=== PATIENT | male | born 1950 | race Hispanic/Latino ===

== ENCOUNTER 2025-01-25 15:52 | Observation (INO) | payer OTHER ==
[~2025-01-25] VITALS: Ht 177.8 cm; Wt 86.6 kg
--- NOTE | 2025-01-25 16:23 | EKG ---
[facility] Test Date: 2025-01-25 Test Time: 16:07:58 Pat Name: ABIEL MARTINEZ Department: EDH Room: ED Gender: M In Service Coordinator: [id number] : 1950 Requested By: REECE ELAM Order Number: [id number] Reading MD: Natali Landry Measurements Intervals [place] Rate: 81 P: 10 VA: 166 QRS: 22 QRSD: 118 T: 50 QT: 415 QTc: 482 Interpretive Statements Sinus rhythm Nonspecific intraventricular conduction delay Inferior infarct, old No previous ECG available for comparison Electronically Signed On 01-26-2025 12:29:07 PIE CRUST MIXER by Natali Landry Please click the below link to view image of tracing.
[2025-01-25 16:49] LABS: IMMATURE GRANULOCYTE ABSOLUTE 0.06 K/uL (0-1); NUCLEATED RED BLOOD CELLS 0.0 % (0.0-0.19); PLATELET COUNT (AUTO) 257 K/uL (130-400); RED BLOOD CELL COUNT(AUTO) 5.49 MIL/uL (4.50-6.20); RED CELL DISTRIBUTION WIDTH 13.0 % (11.0-15.5); WHITE BLOOD COUNT (AUTO) 10.1 K/uL (4.8-10.8)
--- NOTE | 2025-01-25 16:57 | HMCIMG ---
EXAM: CR Chest, 1 View. CLINICAL HISTORY: cp COMPARISON: None provided. FINDINGS: LUNGS: Mild bibasilar airspace disease may reflect an infectious and/or inflammatory process. PLEURAL SPACES: No evidence of pleural effusion or pneumothorax. MEDIASTINUM: Cardiac size and mediastinal contours within normal limits. BONES: No aggressive appearing osseous lesion seen. IMPRESSION: 1. Mild bibasilar airspace disease, possibly representing infection or inflammation. /[place]
[2025-01-25 16:58] LABS: CREATININE 0.9 mg/dL (0.5-1.3); GLOMERULAR FILTR. RATE CALC 89.0 mL/min (>90); GLUCOSE,RANDOM 116.0 mg/dL (70-105); SODIUM SERUM 137.0 mmol/L (136-145); UREA NITROGEN, BLOOD 18.0 mg/dL (7-18)
[2025-01-25 16:59] LABS: INR 1.02 (0.85-1.15)
[2025-01-25 17:03] LABS: CREATINE KINASE, TOTAL 68.0 U/L (21-232)
--- NOTE | 2025-01-25 18:11 | ERN ---
General Chief Complaint: Dizzy/Light Headed Stated Complaint: DIZZINESS Time Seen by MD: 15:58 Source: patient, family History of Present Illness Initial Comments PATIENT IS A 74-YEAR-OLD MALE COMING IN COMPLAINING OF DIZZINESS. PER PATIENT THIS DIZZINESS BEGAN YESTERDAY. HE STATES THAT WHEN HE TRIES TO MOVE HIS HEAD EVERYTHING SPINS. Allergies: Coded Allergies: No Known Drug Allergies (Unverified Allergy, Unknown, 01/25/25) Past Medical History Past Medical History: High Cholesterol, Heart Disease, Hypertension, Stroke Past Surgical History: None ROS Dictation CONSTITUTIONAL: NO CHILLS, NO FEVER, NO WEAKNESS, NO DIAPHORESIS, NO MALAISE. HEAD/FACE: NO SIGNS OF TRAUMA. EENT: NO EYE PAIN, NO BLURRED VISION, NO TEARING, NO DOUBLE VISION, NO EAR PAIN, NO EAR DISCHARGE, NO NOSE PAIN, NO NASAL CONGESTION, NO THROAT PAIN, NO THROAT SWELLING, NO MOUTH PAIN. RESPIRATORY: NO COUGH, NO ORTHOPNEA, NO SOB, NO STRIDOR, NO WHEEZING. CARDIOVASCULAR: NO CHEST PAIN, NO EDEMA, NO PALPITATIONS, NO SYNCOPE. GASTROINTESTINAL/ABDOMINAL: NO ABDOMINAL PAIN, NO CONSTIPATION, NO DIARRHEA, NO NAUSEA, NO VOMITING. GENITOURINARY: NO ABNORMAL DISCHARGE, NO DYSURIA, NO FREQUENT URINATION, NO HEMATURIA. NO COMPLAINTS OF PAIN IN THE GENITALS. MUSCULOSKELETAL: NO BACK PAIN, NO GOUT, NO JOINT PAIN, NO JOINT SWELLING, NO MUSCLE PAIN, NO MUSCLE STIFFNESS, NO NECK PAIN. INTEGUMENTARY: NO CHANGE IN COLOR, NO CHANGE IN HAIR/NAILS, NO DRYNESS, NO LESION, NO LUMPS, NO RASH. NEUROLOGICAL/PSYCH: NO ANXIETY, NOT DEPRESSED, NO EMOTIONAL PROBLEM, NO HEA DACHE, NO NUMBNESS, NO PRE-EXISTING DEFICIT, NO HISTORY OF SEIZURES, NO TREMORS, NO WEAKNESS. HEMATOLOGIC/LYMPHATIC: NOT ANEMIC, NO HISTORY OF BLOOD CLOTS, NO APPARENT BLEEDING, NO BRUISING, GLANDS NOT SWOLLEN. ALL SYSTEMS NEGATIVE, EXCEPT NOTED. Physical Exam Physical Exam Dictation VITAL SIGNS: REVIEWED. GENERAL APPEARANCE: ALERT, ORIENTED X3, NO ACUTE DISTRESS, OBESE. HEAD AND FACE: NON-TRAUMATIC. EYES: PERRL, PINK CONJUNCTIVAS, EYELID NO TRAUMA, ANTERIOR CHAMBER CLEAR. EARS: PINNAS INTACT AND NO SIGNS OF TRAUMA OR ERYTHEMA. EAR CANALS CLEAR AND NO DISCHARGE. TMS ERYTHEMA. NOSE: NO DISCHARGE, NO BLEEDING. OROPHARYNX: MOUTH NORMAL, TEETH NO CARIES, TONGUE PINK. PHARYNX ERYTHEMA. TONSILS NO EXUDATES, NO ABSCESSES NOTED. MUCOUS MEMBRANE MOIST. NECK: SUPPLE, NON-TENDER, NO THYROMEGALY, NO MASSES, NO JVD, NO BRUITS. BREAST: DEFERRED. CHEST: NO TENDERNESS, NO CREPITUS, NO PARADOXICAL MOVEMENT, NO RETRACTIONS. LUNGS: CLEAR, WELL-VENTILATED, SYMMETRIC, NO RALES, NO WHEEZING, NO RHONCHI, NO STRIDOR, GOOD BREATH SOUNDS BILATERALLY. HEART: REGULAR RATE, REGULAR RHYTHM, NO MURMUR, NO GALLOPS. VASCULAR: NO PERIPHERAL EDEMA. ABDOMEN: SOFT, POSITIVE BOWEL SOUNDS, NONDISTENDED, NO GUARDING, NONTENDER, NO REBOUND, NO MASSES NO HEPATOMEGALY, NO SPLENOMEGALY, NO SEPULVEDA'S SIGN, NO HERNIAS. RECTAL: DEFERRED. GENITAL: DEFERRED. NEUROLOGICAL: NORMAL SPEECH, GROSS MOTOR FUNCTION INTACT, GROSS SENSORY FUNCTION INTACT. MUSCULOSKELETAL: NECK NONTENDER, FULL RANGE OF MOTION, BACK NONTENDER, FULL RANGE OF MOTION. EXTREMITIES: NONTENDER, FULL RANGE OF MOTION. SKIN: COLOR PINK, DRY, NO TURGOR, NO RASH, NO LACERATIONS, NO ABRASIONS, NO CONTUSIONS. LYMPHATICS: DEFERRED. Results Laboratory and Microbiology Lab and Micro Result Laboratory Tests Test 01/25/25 16:36 01/25/25 18:10 White Blood Count 10.1 K/uL (4.8-10.8) Red Blood Count 5.49 MIL/uL (4.50-6.20) Hemoglobin 16.5 g/dL (14.0-18.0) Hematocrit 50.3 % (42-54) Mean Corpuscular Volume 91.6 fL (79-99) Mean Corpuscular Hemoglobin 30.1 pg (27.0-33.0) Mean Corpuscular Hemoglobin Concent 32.8 g/dL (32.0-36.0) Red Cell Distribution Width 13.0 % (11.0-15.5) Platelet Count 257 K/uL (130-400) Mean Platelet Volume 9.4 fL (7.5-10.5) Immature Granulocyte % (Auto) 0.6 % (0-1) Neutrophils (%) (Auto) 74.0 % (40.0-77.0) Lymphocytes (%) (Auto) 17.5 % (21.0-51.0) L Monocytes (%) (Auto) 6.7 % (3.0-13.0) Eosinophils (%) (Auto) 0.7 % (0.0-8.0) Basophils (%) (Auto) 0.5 % (0.0-5.0) Neutrophils # (Auto) 7.4 K/uL (1.8-7.7) Lymphocytes # (Auto) 1.8 K/uL (1.0-4.8) Monocytes # (Auto) 0.7 K/uL (0.1-1.0) Eosinophils # (Auto) 0.07 K/uL (0.00-0.70) Basophils # (Auto) 0.05 K/uL (0.00-0.20) Absolute Immature Granulocyte (auto 0.06 K/uL (0-1) Nucleated Red Blood Cells 0.0 % (0.0-0.19) Prothrombin Time 10.8 SEC (9.6-11.6) Prothromb Time International Ratio 1.02 (0.85-1.15) Activated Partial Thromboplast Time 26.3 SEC (26.3-35.5) Sodium Level 137 mmol/L (136-145) Potassium Level 4.5 mmol/L (3.5-5.1) Chloride Level 103 mmol/L (101-111) Carbon Dioxide Level 29 mmol/L (21-32) Blood Urea Nitrogen 18 mg/dL (7-18) Creatinine 0.9 mg/dL (0.5-1.3) Glomerular Filtration Rate Calc 89 mL/min (>90) Random Glucose 116 mg/dL (70-105) H Total Calcium 8.8 mg/dL (8.5-10.1) Magnesium Level 2.00 mg/dL (1.80-2.40) Total Creatine Kinase 68 U/L (21-232) Troponin I High Sensitivity 8 ng/L (4-75) Influenza Type A Antigen Negative For Type A Influenza Type B Antigen Negative For Type B SARS-CoV-2, RNA, NAAT NEGATIVE SARS CoV-2 Group A Streptococcus Rapid negative (NEGATIVE) Labs Reviewed?: Yes MDM MDM: DIFFERENTIAL DIAGNOSIS: RATIONALE: TESTS CONSIDERED AND ORDERED SECONDARY TO SHARED DECISION MAKING INCLUDE: PREVIOUS OUTSIDE RECORDS REVIEWED: OLD ER VISITS. RISK OF COMPLICATION AND/OR MORBIDITY OR MORTALITY OF PATIENT MANAGEMENT: NONE MEDICATIONS-PER MEDICATION RECONCILIATION NEED FOR HOSPITALIZATION: PATIENT DOES NOT MEET CRITERIA FOR HOSPITALIZATION. NEED FOR EMERGENCY MAJOR/MINOR SURGERY: NO THERE ARE NO SOCIAL CONCERNS WITH THIS PATIENT. PRESCRIPTION DRUG MANAGEMENT PRESCRIPTIONS WILL INCLUDE SYMPTOMATIC CARE PATIENT'S PRIOR EXTERNAL MEDICAL RECORDS FROM OTHER ER VISITS WERE REVIEWED BY ME INDICATED. PRIOR TESTING AND RESULTS FROM PREVIOUS VISITS WERE REVIEWED. PRIOR TESTS WERE TAKEN INTO ACCOUNT WITH MEDICAL DECISION MAKING AND RESOURCE UTILIZATION, INDEPENDENT HISTORIAN/HISTORIANS WERE USED TO OBTAIN COMPLETE MEDICAL HISTORY. I INDEPENDENTLY INTERPRETED THE TEST THAT WERE PERFORMED, RESULTS WERE REVIEWED BY ME AND CONSIDERED FINDINGS ON RADIOLOGY IF ORDERED. MEDICAL MANAGEMENT AND EXAMINATION INTERPRETATION DISCUSSIONS WERE HAD BY ME WITH OTHER QUALIFIED HEALTHCARE PROFESSIONALS INDICATED FOR THE PATIENT'S CARE. ED Course Orders Procedure Category Date Status Time 12 Lead Ekg Tracing- EKG 01/25/25 Complete Technical 16:04 Cbc With Differential LAB 01/25/25 Complete 16:04 Basic Metabolic Panel LAB 01/25/25 Complete 16:04 Prothrombin Time With LAB 01/25/25 Complete INR 16:05 Chest 1vw RAD 01/25/25 Resulted 16:05 Troponin I High LAB 01/25/25 Complete Sensitivity 16:05 Urinalysis Profile LAB 01/25/25 Logged 16:05 Partial LAB 01/25/25 Complete Thromboplastin Time 16:05 Creatine Kinase, Total LAB 01/25/25 Complete 16:04 Magnesium LAB 01/25/25 Complete 16:04 Covid Rna Naat LAB 01/25/25 Complete 18:07 Rapid (Group A Strep) LAB 01/25/25 Complete 18:07 Influenza Type A & B, LAB 01/25/25 Complete Rapid 18:07 Ct Head/Brain W/O CT 01/25/25 Resulted Contrast 18:08 Dexamethasone 4mg/Ml PHA 01/25/25 Complete 1ml Vial (Dexametha 19:00 Vital Signs(Adult CPOE 01/25/25 Transmitted Hospitalist) 19:39 Nurse To Enter Home CPOE 01/25/25 Transmitted Medication 19:39 Admit Orders ADM 01/25/25 Transmitted 19:39 Troponin I High LAB 01/26/25 Verified Sensitivity 00:00 Troponin I High LAB 01/26/25 Verified Sensitivity 08:00 Troponin I High LAB 01/26/25 Verified Sensitivity 16:00 Consistent Carb DIET 01/26/25 Transmitted Breakfast Cbc With Differential LAB 01/26/25 Verified 04:00 Basic Metabolic Panel LAB 01/26/25 Verified 04:00 Magnesium LAB 01/26/25 Verified 04:00 Enoxaparin Sodium 30 PHA 01/26/25 Logged Mg/0.3 Ml (Lovenox) 09:00 Aspirin 81mg Chew Tab PHA 01/26/25 Logged (Aspirin 81mg Chew 09:00 Insulin Lispro 100 PHA 01/26/25 Logged Unit/Ml 3ml (Humalog 07:30 Acetaminophen 325 Tab PHA 01/25/25 Logged (Tylenol 325mg Tab 20:00 Ondansetron Odt 4mg PHA 01/25/25 Logged Tab (Zofran 4mg Odt) 20:00 Current Medications Medications (Trade) Dose Ordered Sig/Eyad Route PRN Reason Start Time Stop Time Status Last Admin Dose Admin Acetaminophen (TYLenol 325MG TAB) 650 mg Q6H PRN PO MILD PAIN (1-3) 01/25/25 20:00 02/24/25 19:59 UNV Aspirin (Aspirin 81mg Chew Tab) 81 mg DAILY PO 01/26/25 09:00 02/25/25 08:59 Dexamethasone Sodium Phosphate (dexaMETHasone 4MG/ML 1ML VIAL) 4 mg ONCE ONCE IV 01/25/25 19:00 01/25/25 19:01 DC Enoxaparin Sodium (Lovenox) 30 mg DAILY SQ 01/26/25 09:00 02/25/25 08:59 Insulin Human Lispro (HumaLOG LISpro 100 UNIT/ML 3ML) BIDAC SQ 01/26/25 07:30 02/25/25 07:29 UNV Ondansetron HCl (zoFRAN 4MG ODT) 4 mg Q6H PRN SL NAUSEA/VOMITING 01/25/25 20:00 02/24/25 19:59 UNV Vital Signs Date Time Temp Pulse Resp B/P (MAP) Pulse Ox O2 Delivery O2 Flow Rate FiO2 01/25/25 15:56 97.7 68 18 146/75 96 Room Air 0 DX & DISP Disposition: Inpatient Departure Impression: Primary Impression: Pre-syncope Condition: Stable Referrals: YAN SALAS MD (PCP) REECE ELAM MD Jan 25, 2025 18:11 LOURDES ARELLANO MD Jan 25, 2025 19:54
[2025-01-25 18:31] LABS: RAPID GROUP A STREP negative (NEGATIVE)
[2025-01-25 18:35] LABS: SARS-CoV-2, RNA, NAAT NEGATIVE SARS CoV-2 (NEGATIVE)
[2025-01-25 18:40] LABS: INFLUENZA TYPE A Negative For Type A (NEGATIVE); INFLUENZA TYPE B Negative For Type B (NEGATIVE)
--- NOTE | 2025-01-25 19:06 | HMCIMG ---
EXAM: CT Head Without IV Contrast CLINICAL HISTORY: Patient presents with vertigo. TECHNIQUE: Axial computed tomography images of the head/brain were obtained without intravenous contrast. COMPARISON: None provided. FINDINGS: BRAIN: Mild diffuse cerebral atrophy with prominence of the cortical sulci and bilateral sylvian fissures. Periventricular hypodensities concerning for chronic microangiopathic ischemic changes. No evidence of acute hemorrhage, mass lesion, or acute territorial infarct. No midline shift or extra-axial collections. VENTRICLES: No hydrocephalus. ORBITS: The orbits are unremarkable. SINUSES AND MASTOIDS: The paranasal sinuses and mastoid air cells are clear. BONES: No fracture. SOFT TISSUES: Unremarkable. IMPRESSION: Mild diffuse cerebral atrophy. Periventricular hypodensities consistent with chronic microangiopathic ischemic changes. No acute intracranial abnormality. /[place]
--- NOTE | 2025-01-25 20:16 | NUR ---
ASSUMED PT CARE
[2025-01-25] MEDS ORDERED: ATOR40TA69 PO (20:50)
[2025-01-25] MEDS ORDERED: AMLO2.5T4 PO (20:50)
[2025-01-25] MEDS ORDERED: LEVO112C5 PO (20:50)
[2025-01-25 23:50] LABS: APPEARANCE,URINE CLEAR (CLEAR); GLUCOSE, URINE (UA) NEGATIVE (NEGATIVE); LEUKOCYTE ESTERASE ,URINE NEGATIVE Leu/uL (NEGATIVE); NITRATE,URINE NEGATIVE (NEGATIVE); OCCULT BLOOD,URINE NEGATIVE (NEGATIVE)
[2025-01-25 23:51] LABS: ADD UA MICROSCOPIC YES
[2025-01-26] VITALS (8 sets, daily range): BP systolic 125–147; BP diastolic 66–85; PULSE 75–100; RESP 16–18; TEMP 97.4–97.9; O2SAT 98
[2025-01-26 06:26] LABS: IMMATURE GRANULOCYTE ABSOLUTE 0.06 K/uL (0-1); NUCLEATED RED BLOOD CELLS 0.0 % (0.0-0.19); PLATELET COUNT (AUTO) 275 K/uL (130-400); RED BLOOD CELL COUNT(AUTO) 5.66 MIL/uL (4.50-6.20); RED CELL DISTRIBUTION WIDTH 13.1 % (11.0-15.5); WHITE BLOOD COUNT (AUTO) 11.4 K/uL (4.8-10.8)
[2025-01-26 06:41] LABS: CREATININE 0.9 mg/dL (0.5-1.3); GLOMERULAR FILTR. RATE CALC 89.0 mL/min (>90); GLUCOSE,RANDOM 129.0 mg/dL (70-105); SODIUM SERUM 136.0 mmol/L (136-145); UREA NITROGEN, BLOOD 16.0 mg/dL (7-18)
[2025-01-26] MEDS: ENOXAPARIN SODIUM 30 MG/0.3 ML SQ SCH (09:11)
[2025-01-26] MEDS: ASPIRIN 81MG CHEW TAB PO SCH (09:11)
--- NOTE | 2025-01-26 10:37 | NUR ---
DCP: HOME Pt is retired from [employer], now lives in [facility]. Denies issues affording home. Siblings Elisa Hayden [phone] and Kamar Ratliff [phone] assist pt as needed. t able to complete self care and home management independently. Pt uses no DME or HH services. PCP is Carli Ward and uses [id number] for rx services. [place]CP [place] home [place].
--- NOTE | 2025-01-26 14:18 | CONS ---
[facility] CARDIOLOGY CONSULTATION REPORT Cardiology consultation note dictated for Natali Landry MD Date Patient Seen: Jan 26, 2025 Time of Visit: 14:05 Requesting Physician: Kallie Brooks MD Reason for Consultation: Syncope History of Present Illness: This is a 74-year-old male with a past medical history of hypertension, hyperlipidemia, CVA, hypothyroidism, CAD s/p coronary angiogram in 2006 with PCI to unknown vessel, inconclusive myocardial perfusion scan on 05/24/2012, coronary angiogram on 09/15/2012 demonstrating nonobstructive CAD, LVEF of 50- 55% with no regional wall motion abnormalities or significant valvular pathology by 2D echo 05/24/2012, and noncompliance who presented to the ED with complaints of the dizziness. Cardiology has been consulted for syncope. The patient denied any loss of consciousness, near-syncope, or syncope. Yesterday, as he moved from laying to sitting position the room began to spin and has since felt woozy. Cardiac enzymes have been negative x3. EKG demonstrated normal sinus rhythm with a heart rate of 81bpm, no acute ischemia noted. Past Medical History: As per HPI and summarized below Past Surgical History: Denies Family History: Noncontributory Social History: The patient lives with his . Habits: The patient denies alcohol, tobacco, or illicit drug use. Home Meds: Amlodipine 2.5 mg daily [id number] mcg daily Lipitor 40 mg q.h.s. Current Meds: Current Medications Medications Dose Ordered Sig/Eyad Start Time Stop Time Status Last Admin Enoxaparin Sodium 30 mg DAILY 01/26/25 09:00 02/25/25 08:59 01/26/25 09:11 Aspirin 81 mg DAILY 01/26/25 09:00 02/25/25 08:59 01/26/25 09:11 Insulin Human Lispro BIDAC 01/26/25 07:30 02/25/25 07:29 Acetaminophen 650 mg Q6H PRN 01/25/25 20:00 02/24/25 19:59 Ondansetron HCl 4 mg Q6H PRN 01/25/25 20:00 02/24/25 19:59 Review of Systems: CONST: No fever, fatigue, or weight changes. EYES: No recent vision problems. ENT: No congestion, ear pain, or sore throat. C/V: No chest pain, palpitations, or edema. RESP: No cough, congestion, wheezing or shortness of breath. GI: No abdominal pain, nausea, vomiting, constipation, or diarrhea. : No incontinence or dysuria. SKIN: No rash. NEURO: No headache, focal numbness or weakness, dizziness, or seizures. PSYCH: No depression or anxiety. HEME: No abnormal bruising or bleeding. LYMPH: No swollen glands. Physical Examination: GENERAL: No acute distress. HEAD: Normal with no signs of head trauma. EYES: PERRLA, EOMI, conjunctiva and sclera normal. ENT: Hearing grossly intact, normal oropharynx. NECK: Supple without JVD. Normal carotid upstrokes without bruits. LUNGS: Clear breath sounds bilaterally. No wheezes, or rhonchi. HEART: Normal rate and rhythm. Normal S1 and S2 without murmurs, gallop or rub. VASC: Peripheral pulses +2 bilaterally. ABD: Bowel sounds normal, soft, nontender, no masses, no organomegaly. No audible bruits. : Not examined LYMPH: No lymphadenopathy noted. EXT: No clubbing, cyanosis or edema. SKIN: No rashes or lesions noted. NEURO: Awake, alert, and oriented x3. No focal sensory or strength deficits noted. Vital Signs (last 8hr) Date Time Temp Pulse Resp B/P (MAP) Pulse Ox O2 Delivery O2 Flow Rate FiO2 01/26/25 08:37 98.1 95 12 157/70 95 Room Air* 0 21 Laboratory: Hematology Labs: Test 01/26/25 06:01 Range/Units White Blood Count 11.4 H 4.8-10.8 K/uL Red Blood Count 5.66 4.50-6.20 MIL/uL Hemoglobin 17.0 14.0-18.0 g/dL Hematocrit 52.1 42-54 % Mean Corpuscular Volume 92.0 79-99 fL Mean Corpuscular Hemoglobin 30.0 27.0-33.0 pg Mean Corpuscular Hemoglobin Concent 32.6 32.0-36.0 g/dL Red Cell Distribution Width 13.1 11.0-15.5 % Platelet Count 275 130-400 K/uL Mean Platelet Volume 9.5 7.5-10.5 fL Immature Granulocyte % (Auto) 0.5 0-1 % Neutrophils (%) (Auto) 86.8 H 40.0-77.0 % Lymphocytes (%) (Auto) 9.9 L 21.0-51.0 % Monocytes (%) (Auto) 2.5 L 3.0-13.0 % Eosinophils (%) (Auto) 0.1 0.0-8.0 % Basophils (%) (Auto) 0.2 0.0-5.0 % Neutrophils # (Auto) 9.9 H 1.8-7.7 K/uL Lymphocytes # (Auto) 1.1 1.0-4.8 K/uL Monocytes # (Auto) 0.3 0.1-1.0 K/uL Eosinophils # (Auto) 0.01 0.00-0.70 K/uL Basophils # (Auto) 0.02 0.00-0.20 K/uL Absolute Immature Granulocyte (auto 0.06 0-1 K/uL Nucleated Red Blood Cells 0.0 0.0-0.19 % White Cell Morphology Comment See comments Chemistry Labs: Test 01/26/25 07:41 01/26/25 06:01 01/25/25 16:36 Range/Units Troponin I High Sensitivity 8 4-75 ng/L Sodium Level 136 136-145 mmol/L Potassium Level 4.5 3.5-5.1 mmol/L Chloride Level 103 101-111 mmol/L Carbon Dioxide Level 26 21-32 mmol/L Blood Urea Nitrogen 16 7-18 mg/dL Creatinine 0.9 0.5-1.3 mg/dL Glomerular Filtration Rate Calc 89 >90 mL/min Random Glucose 129 H 70-105 mg/dL Hemoglobin A1c 5.7 4.0-6.0 % Estimated Average Glucose (eAG) 117 70-126 mg/dL Total Calcium 9.1 8.5-10.1 mg/dL Magnesium Level 2.20 1.80-2.40 mg/dL Total Creatine Kinase 68 21-232 U/L Coagulation Labs: Test 01/25/25 16:36 Range/Units Prothrombin Time 10.8 9.6-11.6 SEC Prothromb Time International Ratio 1.02 0.85-1.15 Activated Partial Thromboplast Time 26.3 26.3-35.5 SEC Diagnostics / Radiology: Impression and Plan: Dizziness/vertigo Hypertension Hyperlipidemia CVA Hypothyroidism CAD s/p coronary angiogram in 2006 with PCI to unknown vessel Inconclusive myocardial perfusion scan on 05/24/2012 Coronary angiogram on 09/15/2012 demonstrating nonobstructive CAD LVEF of 50-55% with no regional wall motion abnormalities or significant valvular pathology by 2D echo 05/24/2012 Noncompliance The patient will need an updated ischemic evaluation which can be done as an outpatient. Start on Aspirin 81mg daily. Recommend vestibular, middle ear evaluation as can be a component to the patient's symptoms. Cardiology will sign-off. Cardiology has been consulted for syncope. The patient denied any loss of consciousness, near-syncope, or syncope. Yesterday, as he moved from laying to sitting position the room began to spin and has since felt woozy. Cardiac enzymes have been negative x3. EKG demonstrated normal sinus rhythm with a heart rate of 81bpm, no acute ischemia noted. [facility] Jan 26, 2025 14:17
--- NOTE | 2025-01-26 14:31 | NUR ---
REPORT GIVEN TO SOHEILA CHEN, HERNANDEZ SENT WITH PATIENT
--- NOTE | 2025-01-26 15:34 | HP ---
DATE OF SERVICE: 01/25/2025 HISTORY AND PHYSICAL PRESENTING COMPLAINT: Dizziness and presyncope. HISTORY OF PRESENT ILLNESS: A 74-year-old male with hypertension, dyslipidemia, and coronary artery disease who presents to the hospital with dizziness and presyncope. The patient tells he felt the room spinning, which is worse on getting up. Also nearly passed out. No headache. No slurred speech or limb weakness. Denies chest pain, palpitations, or orthopnea. Troponin negative. EKG shows sinus rhythm. CT of the head was unremarkable. Chest x-ray showed mild bibasilar infiltrates. No cough. No hemoptysis or pleuritic pain. Denies fever or chills. PAST MEDICAL HISTORY: * Hypertension. * Dyslipidemia. * CVA. * Coronary artery disease. * Obesity. PAST SURGICAL HISTORY: PCI. ALLERGIES: No known drug allergies. HOME MEDICATIONS: Reviewed: Synthroid. Lipitor. Deanna-Michelle. SOCIAL HISTORY: Lives alone. No alcohol, tobacco, or illicit drug use. FAMILY HISTORY: Noncontributory. REVIEW OF SYSTEMS: Greater than 10 systems were reviewed, negative except as documented above. PHYSICAL EXAMINATION: GENERAL: Elderly male, awake, not in distress. VITAL SIGNS: Temperature 97.7, pulse 68, respirations 18, blood pressure 112/75. EYES: No icterus. Pupils are equal and reactive. HENT: No oral thrush seen. Moist oral mucosa. NECK: Supple. No JVD or thyromegaly. LUNGS: Good air entry. No rales. No rhonchi. CARDIOVASCULAR: S1 and S2 regular. No murmur heard. ABDOMEN: Obese, soft, nontender. Bowel sounds present. CENTRAL NERVOUS SYSTEM: Awake, alert, and oriented x 3. No focal deficits. SKIN: No rashes. No itchiness. LYMPHATIC: No peripheral lymphadenopathy. BACK: No deformity. No pressure ulcer. MUSCULOSKELETAL: No joint swelling, erythema, or tenderness. LABORATORY DATA: Troponin 9. Sodium 137, potassium 4.5, BUN 18, creatinine 0.9. WBC 10.1, hemoglobin 16.5, platelets 257. RADIOLOGY: CT of the head was unremarkable. Chest x-ray showed mild bibasilar infiltrate. ASSESSMENT: A 74-year-old male presented with dizziness. Current problems include: * Dizziness * Presyncope * Hypertension * Dyslipidemia * Coronary artery disease PLAN: * Admit the patient to medical floor with telemetry. * Troponin will be trended. * Cardiology evaluation. * Home medication will be reconciled. * Tylenol as needed for pain or fever * Zofran as needed for nausea and vomiting. * Monitor electrolytes and correct as needed. TID: [id number] RECEIPT: [id number] [facility]
--- NOTE | 2025-01-27 02:24 | PN ---
MEDICAL MANAGEMENT FOLLOWUP NOTE DATE OF SERVICE: 01/26/2025. SUBJECTIVE: The patient is seen and examined at bedside today. No fever, no chills. Dizziness is much better. No chest pain. No palpitations or orthopnea. No nausea, vomiting. No abdominal pain or diarrhea. No dysuria or urinary frequency. No bleeding tendencies. No rashes or itchiness. PHYSICAL EXAMINATION: GENERAL: Elderly male, awake. VITAL SIGNS: Temperature 97.5. EYES: No icterus. Pupils equal, round, and reactive. HENT: No oral lesion seen. Moist oral mucosa. NECK: Supple. No JVD or thyromegaly. LUNGS: Good air entry. No rales. No rhonchi. CARDIOVASCULAR: S1 and S2, regular. No murmur heard. ABDOMEN: Full. Soft. Nontender. Bowel sound is present. CENTRAL NERVOUS SYSTEM: Awake, alert, oriented x 3. No focal deficits. SKIN: No rashes. No itchiness. LYMPHATICS: No peripheral lymphadenopathy. BACK: No deformity. No pressure ulcer. MUSCULOSKELETAL: No joint swelling, erythema, or tenderness. ASSESSMENT: A 74-year-old male presenting with dizziness. CURRENT PROBLEMS: Include: 1. Dizziness. 2. Presyncope. 3. Hypertension. 4. Obesity. 5. History of coronary artery disease. PLAN: 1. Continue antihypertensives. 2. Continue antiemetics. 3. Continue nutritional support. 4. Continue pain management. 5. Monitor electrolytes and correct as needed. TID: [id number] RECEIPT: [id number]
[2025-01-27 03:17] VITALS: BP 143/87; PULSE 73; RESP 16; TEMP 97.8
[2025-01-27 07:00] VITALS: BP 132/76; PULSE 69; RESP 20; TEMP 98
[2025-01-27 08:00] VITALS: O2SAT 96
[2025-01-27 11:00] VITALS: BP 125/72; PULSE 75; RESP 20; TEMP 98.2
--- NOTE | 2025-01-27 13:22 | DS ---
Discharge Summary DIAGNOSE(S): Dizziness and presyncope HOSPITAL COURSE SUMMARY: A 74-year-old male with hypertension, dyslipidemia, and coronary artery disease who presents to the hospital with dizziness and presyncope. The patient tells he felt the room spinning, which is worse on getting up. Also nearly passed out. No headache. No slurred speech or limb weakness. Denies chest pain, palpitations, or orthopnea. Troponin negative. EKG shows sinus rhythm. CT of the head was unremarkable. Chest x-ray showed mild bibasilar infiltrates. Patient was evaluated by Cardiology. With the recommendations of the she had been evaluation which should be done as outpatient. Recommended vestibular, middle ear evaluation. Patient will be discharged, to follow up with PCP for referral for ENT. Went over plan of care with the patient's stated understanding. WRESTLING COACH(S): Cardiology PROBLEM(S): Possible middle ear vestibular. Dizziness Presyncope Hypertension History of CAD FOLLOW-UP TEST(S): Follow up with the Cardiology for possible work up DISCHARGE INSTRUCTIONS: Follow up with PCP for possible referral to ENT Follow up with the Cardiology as outpatient. This case has been discussed with my supervising physician . The case has been discussed and agreed upon. Home Meds Reported Medications Atorvastatin Calcium (LIPITOR) 40 Mg Tablet, 1 TAB PO HS for 30 Days, #30 TAB 0 Refills 01/25/25 Levothyroxine Sodium (Levothyroxine) 112 Mcg Capsule, 1 CAP PO DAILY for 30 Days, #30 CAP 0 Refills 01/25/25 Amlodipine Besylate (Amlodipine Besylate) 2.5 Mg Tablet, 1 TAB PO DAILY for 30 Days, #30 TAB 0 Refills 01/25/25 DUNCAN MAGANA BONE PULLER Jan 27, 2025 13:22
--- NOTE | 2025-01-27 13:40 | NUR ---
GIVEN DISMISSAL INSTRUCTIONS, NO NEW SCRIPTS. VERBALIZED UNDERSTANDING. REMOVED SALINE FROM RIGHT HAND, IV SITE WITHOUT REDNESS NOTED. REMOVED TELE PACK.
--- NOTE | 2025-01-27 14:06 | NUR ---
TAKEN TO PRIVATE CAR ALONG WITH PERSONAL BELONGINGS VIA WHEELCHAIR BY HAILEY KELLOGG.
== END 2025-01-27 13:34 | disposition home or self-care (01) ==
LOC: EDH 15:52 → EDHIP 19:39 → INTOOBSV 19:39 → UNDOADMOB 19:39 → EDHIP 20:25 → 2AH 01-26 14:49 → EDHIP 01-26 14:49 → UNDOADMOB 01-27 11:07 → EDHIP 01-27 11:07 → 2AH 01-27 11:07 → UNDODISOB 01-27 13:34
PROVIDERS: ADMIT Internal Medicine Infectious Disease; ATTEND Internal Medicine Infectious Disease
DX: R55 Syncope and collapse (principal); E03.9 Hypothyroidism, unspecified; E66.9 Obesity, unspecified; I10 Essential (primary) hypertension; I25.10 Atherosclerotic heart disease of native coronary artery without angina pectoris; Z86.73 Personal history of transient ischemic attack (TIA), and cerebral infarction without residual deficits; Z79.899 Other long term (current) drug therapy; Z98.890 Other specified postprocedural states; Z20.822 Contact with and (suspected) exposure to COVID-19
CPT/HCPCS: 99285; 82550; 83735 ×2; 84484 ×4; 80048 ×2; 85025 ×2; 85610; 85730; 87880; 87804 ×2; 81001; 36415 ×2; 87635; 71045; 70450; 96374; 93005; 96372 ×2; 83036; 82948; J1100; J1650 ×2; G0378 ×5